=== PATIENT | male | born 1975 | race Caucasian/White ===

== ENCOUNTER 2019-06-15 16:32 | Emergency (ER) | payer BC ==
[~2019-06-15] VITALS: Ht 188 cm; Wt 93.2 kg
[2019-06-15 16:36] VITALS: TEMP 97.2
[2019-06-15 17:11] LABS: BASO % 0.4 % (0.0-2.0); EOS # 0.1 (0.0-0.7); EOS % 0.8 % (0-4.0); GRAN # 6.7 (1.4-6.5); GRAN % 66.2 % (42.2-75.2); HEMATOCRIT 43.4 % (42.0-52.0); HEMOGLOBIN 14.8 g/dl (13.5-18.0); LYMPH # 2.5 (1.2-3.4); LYMPH % 24.6 % (20.0-51.0); MEAN CELL VOLUME 90 fl (80.0-100.0); MEAN CORPUSCULAR HEMOGLOBIN 31 pg (27.0-31.0); MEAN CORPUSCULAR HGB CONC 34 g/dl (33.0-37.0); MEAN PLATELET VOLUME 8.1 fl (7.4-10.4); MONO # 0.8 (0.1-0.6); MONO % 7.4 % (1.7-9.3); PLATELET COUNT 273 K/mm3 (130-400); RED BLOOD COUNT 4.82 M/mm3 (4.20-5.60); REDCELL DISTRIBUTION WIDTH-CV 12.8 % (11.5-14.5)
[2019-06-15 17:27] LABS: ALBUMIN 4.4 gm/dL (3.5-5.0); BILIRUBIN,TOTAL 0.4 mg/dL (0.0-1.0); CALCIUM 9.6 mg/dL (8.4-10.2); CREATININE, serum 0.83 (0.66-1.25); POTASSIUM 3.6 mmol/L (3.4-5.0); TOTAL PROTEIN 7.2 gm/dL (6.4-8.2)
[2019-06-15] MEDS ORDERED: CEPHALEXIN500 M1 PO (20:04)
[2019-06-15] MEDS ORDERED: FLEXERIL 1010 MG/TAB PO (20:04)
[2019-06-15] MEDS ORDERED: NORCO 325 MG-51 TAB PO (20:04)
[2019-06-15 20:18] VITALS: BP 135/90; PULSE 81
== END 2019-06-15 20:28 | disposition home or self-care (01) ==
LOC: COL.ER 16:32
PROVIDERS: Emergency Medicine
DX: S51.811A Laceration without foreign body of right forearm, initial encounter (principal); S46.911A Strain of unspecified muscle, fascia and tendon at shoulder and upper arm level, right arm, initial encounter; S20.211A Contusion of right front wall of thorax, initial encounter; Z23 Encounter for immunization; F17.210 Nicotine dependence, cigarettes, uncomplicated; V86.59XA Driver of other special all-terrain or other off-road motor vehicle injured in nontraffic accident, initial encounter
CPT/HCPCS: J0690; J1885; J2405; J3010; J7030